=== PATIENT | female | born 1995 | race American Indian/Alaskan Native ===

== ENCOUNTER 2016-12-19 22:13 | Inpatient (IN) | payer MEDICAID ==
[2016-12-19] MEDS ORDERED: LACTATED RINGERS 1,000 ML ONE (23:04)
[2016-12-19] MEDS ORDERED: LACTATED RINGERS 500 ML IV ONE (23:06)
[2016-12-19] MEDS ORDERED: LACTATED RINGERS 1,000 ML IV ONE (23:08)
[2016-12-20 00:04] LABS: Bacteria,Urine 4+ /HPF (Negative); Bilirubin,Urine NEG (Negative); Blood,Urine SM (Negative); Ketones,Urine NEG (Negative); Leukocyte Esterase,Urine LG (Negative); Mucus,Urine FEW /HPF; Nitrite,Urine POS (Negative)
[2016-12-20 00:11] LABS: WBC,Urine > 182.0 /HPF (0.0-6.0)
--- NOTE | 2016-12-20 00:21 | History and Physical Report ---
History of Present Illness Date of examination: 12/20/16 Chief complaint: fever x 3 days History of present illness: Pt is a 21 year old -[place] female LEON 02[birth year] at 32w4d who presents complaining low back pain and fever x 3 days. She denies cough (though she does report runny nose and itchy eyes), nausea, vomiting, dysuria, hematuria , diarrhea, trauma, sick contacts, or recent travel outside the . The patient is in [place] while visiting her mother but she lives in [place], [place] and has care there with Dr Darya Miranda. She reports that her has been uncomplicated except for anemia. She has been evaluated by a as400 programmer Dr Wilhelm and was prescribed three weekly iron infusions, with the last on December 05, 2016. She reports good movement today, and denies vaginal bleeding or leakage of fluid. Of note, the patient does report episodes of shaking over the past few days that are uncontrollable and include her whole body. She experiences dyspnea when these episodes occur, which is typically at night. Past History Past Medical History: no pertinent history Past Surgical History: no surgical history Family/Genetic History: diabetes, heart disease Social history: no significant social history - Obstetrical History Expected Date of Delivery: 02/10/17 Actual Gestation: 32 Week(s) 4 Day(s) : 2 Para: 0 Hx # Term Pregnancies: 0 Number of Pregnancies: 0 Spontaneous Abortions: 1 Induced : 0 Medications and Allergies Allergies Allergy/AdvReac Type Severity Reaction Status Date / Time No Known Allergies Allergy Unverified 12/19/16 22:30 Review of Systems All systems: negative (per HPI) - Vital Signs Vital signs: Vital Signs Pulse Pulse Ox 125 H 96 12/19/16 22:17 12/19/16 22:17 Temp Pulse Resp BP Pulse Ox 102.4 F H 121 H 18 96/38 99 12/19/16 22:27 12/20/16 00:18 12/19/16 22:27 12/19/16 22:28 12/20/16 00:18 - Physical Exam Breasts: Positive: deferred Cardiovascular: Regular rate Lungs: Positive: Clear to auscultation Abdomen: Positive: soft (gravid, non-tender ). Negative: tenderness Uterus: Positive: enlarged (gravid ) Extremities: Positive: normal - Obstetrical FHR: category 2 Uterine Contraction Monitor Mode: External Uterine Contraction Pattern: Absent Uterine Tone Measurement Phase: Resting Results Abnormal lab results 12/19/16 Range/Units 23:20 Urine WBC (Auto) > 182.0 H (0.0-6.0) /HPF All other labs normal. Assessment and Plan A: IUP at 32w4d Febrile morbidity Anemia P: Admit to antepartum service. Blood cultures x 2 CBC, CMP CXR, Urine culture BPP MFM consult
[2016-12-20] MEDS ORDERED: BENADRYL PO PRN (00:31)
[2016-12-20] MEDS ORDERED: DEEP SEA NS PRN (00:31)
[2016-12-20] MEDS ORDERED: TYLENOL PO PRN (00:31)
[2016-12-20] MEDS ORDERED: ROBITUSSIN DM PO PRN (00:31)
[2016-12-20] MEDS ORDERED: COLACE PO PRN (00:31)
[2016-12-20] MEDS ORDERED: ALUM-MAG HYDROX-SIMETH 200-200-20MG/5ML PO PRN (00:31)
--- NOTE | 2016-12-20 00:32 | XRay Report ---
FINAL REPORT PROCEDURE: XR CHEST 1V AP TECHNIQUE: Chest radiograph anteroposterior view. CPT 86704 HISTORY: fever, difficulty breathing COMPARISON: No prior studies are available for comparison. FINDINGS: Heart: Normal. Mediastinum/Vessels: Normal. Lungs/Pleural space: Normal. Bony thorax: No acute osseous abnormality. Life support devices: None. IMPRESSION: No acute cardiopulmonary abnormality.
[2016-12-20 00:44] LABS: Basophils % (Auto) 0.2 % (0.0-1.8); Eosinophils % (Auto) 0.2 % (0.0-4.3); Hematocrit 28.2 % (30.3-42.9); Hemoglobin 9.3 gm/dl (10.1-14.3); Mean Corpuscular HGB Conc 33 % (30-34); Mean Corpuscular Hemoglobin 29 pg (28-32); Mean Corpuscular Volume 88 fl (79-97); Platelet Count 168 K/mm3 (140-440); Red Cell Distribution Width 14.8 % (13.2-15.2); White Blood Count 7.6 K/mm3 (4.5-11.0)
--- NOTE | 2016-12-20 00:50 | Event Note ---
Date: 12/20/16 Urinalysis results reviewed. Pt with pyelonephritis and possibly urosepsis. Continue to closely monitor maternal and status. Continuous pulse oximetry. Cancel chest X-ray as low suspicion as etiology of fever at this time. Begin Rocephin 1g q 24 hrs.
[2016-12-20] MEDS ORDERED: ROCEPHIN/NS 1 GM/50 ML 1 GM/50 ML BAG IV SCH ×2 (00:52→11:30)
[2016-12-20] MEDS: LACTATED RINGERS 1,000 ML IV SCH ×3 (01:50→14:08)
[2016-12-20 02:08] LABS: Anion Gap TNR mmol/L; BUN/Creatinine Ratio TNR; Blood Urea Nitrogen TNR mg/dL (7-17); Carbon Dioxide TNR mmol/L (22-30); Chloride TNR mmol/L (98-107); Potassium TNR mmol/L (3.6-5.0); Sodium TNR mmol/L (137-145)
[2016-12-20 02:09] LABS: Alanine Aminotransferase TNR units/L (7-56); Albumin TNR g/dL (3.9-5); Albumin/Globulin Ratio TNR %; Alkaline Phosphatase TNR units/L (35-129); Bilirubin,Total TNR mg/dL (0.1-1.2); Calcium TNR mg/dL (8.4-10.2); Glucose TNR mg/dL (65-100); Total Protein TNR g/dL (6.3-8.2)
[2016-12-20] MEDS: STADOL IV PRN (02:22)
[2016-12-20 04:15] LABS: Alanine Aminotransferase 8 units/L (7-56); Albumin 3.1 g/dL (3.9-5); Albumin/Globulin Ratio 1.2 %; Alkaline Phosphatase 86 units/L (35-129); Anion Gap 19 mmol/L; BUN/Creatinine Ratio 13.33; Blood Urea Nitrogen 4 mg/dL (7-17); Calcium 8.5 mg/dL (8.4-10.2); Carbon Dioxide 21 mmol/L (22-30); Chloride 102.6 mmol/L (98-107); Glucose 99 mg/dL (65-100); Potassium 3.4 mmol/L (3.6-5.0); Sodium 139 mmol/L (137-145); Total Protein 5.7 g/dL (6.3-8.2)
--- NOTE | 2016-12-20 08:04 | Ultrasound Report ---
ULTRASOUND BIOPHYSICAL PROFILE: History: well being Technique: Transabdominal ultrasound with Doppler interrogation. 2 - breathing movements 2 - movements 2 - posture and tone 2 - Qualitative amniotic fluid volume 8 - TOTAL SCORE OF POSSIBLE 8 Heart Rate (bpm) 150
[2016-12-20] MEDS ORDERED: PRENATAL VITAMIN PO SCH (10:00)
[2016-12-20] MEDS: KCL 10MEQ/100ML 10 MEQ/100 ML BAG IV SCH ×2 (12:07→14:06)
--- NOTE | 2016-12-20 13:33 | Progress Note ---
Assessment and Plan A: IUP at 32w4d Febrile morbidity Anemia low potassium P: Admit to antepartum service. afebrile since 12/20 1 am Rocephin for UTI /Pyelo K+ ( addition) repeat cmp in am MFM consult Subjective - Subjective Date of service: 12/20/16 Principal diagnosis: Pyelo, IUP 35 weeks Patient reports: appetite normal, voiding normally, pain well controlled, flatus , ambulating normally Objective - Vital Signs Latest vital signs: Vital Signs Temp Pulse Pulse Resp BP BP Pulse Ox 12/20/16 12:07 85 98 12/20/16 12:05 97.9 F 79 18 109/62 12/20/16 12:02 88 98 12/20/16 11:59 82 109/62 12/20/16 11:57 89 97 12/20/16 11:52 87 98 12/20/16 11:47 82 98 12/20/16 11:42 87 98 12/20/16 11:37 85 99 12/20/16 11:32 91 H 98 12/20/16 11:27 88 98 12/20/16 11:22 82 98 12/20/16 11:17 91 H 100 12/20/16 11:12 92 H 100 12/20/16 11:07 99 H 99 12/20/16 11:02 87 100 12/20/16 10:57 80 98 12/20/16 10:52 83 97 12/20/16 10:47 78 98 12/20/16 10:42 86 97 12/20/16 10:37 85 97 12/20/16 10:32 89 98 12/20/16 10:27 98 H 96 12/20/16 10:22 99 H 97 12/20/16 10:17 97 H 97 12/20/16 10:12 89 97 12/20/16 10:07 86 97 12/20/16 10:02 92 H 98 12/20/16 09:57 88 97 12/20/16 09:52 86 97 12/20/16 09:47 88 97 12/20/16 09:42 94 H 97 12/20/16 09:37 100 H 97 12/20/16 09:32 96 H 98 12/20/16 09:31 96 H 90 12/20/16 09:19 93 H 95 12/20/16 09:14 93 H 96 12/20/16 09:11 88 94 12/20/16 09:09 89 94 12/20/16 09:04 90 92 12/20/16 08:59 88 97 12/20/16 08:54 86 96 12/20/16 08:49 83 97 12/20/16 08:44 85 96 12/20/16 08:39 85 96 12/20/16 08:34 87 96 12/20/16 08:29 89 95 12/20/16 08:24 89 97 12/20/16 08:19 88 97 12/20/16 08:14 89 97 12/20/16 08:09 100 H 97 12/20/16 08:04 93 H 96 12/20/16 08:00 85 89/53 12/20/16 07:59 83 88/51 98 12/20/16 07:54 91 H 97 12/20/16 07:49 98 H 95 12/20/16 07:44 91 H 97 12/20/16 07:39 93 H 97 12/20/16 07:34 98.2 F 85 85 20 101/57 97 12/20/16 07:29 82 99 12/20/16 07:24 75 99 12/20/16 07:19 77 99 12/20/16 07:14 84 99 12/20/16 07:09 94 H 96 12/20/16 07:04 94 H 96 12/20/16 06:59 95 H 96 12/20/16 06:54 97 H 96 12/20/16 06:49 95 H 96 12/20/16 06:44 100 H 96 12/20/16 06:39 97 H 97 12/20/16 06:37 103 H 94 12/20/16 06:35 98.7 F 99 H 20 101/57 05 06:34 100 H 95 12/20/16 06:29 97 H 101/57 96 12/20/16 06:28 66 75 L 12/20/16 06:09 110 H 97 12/20/16 06:04 97 H 98 12/20/16 05:59 96 H 98 12/20/16 05:54 98 H 98 12/20/16 05:49 99 H 98 12/20/16 05:44 101 H 99 12/20/16 05:39 97 H 99 12/20/16 05:34 96 H 98 12/20/16 05:29 107 H 98 12/20/16 05:24 102 H 99 12/20/16 05:19 105 H 99 12/20/16 05:14 109 H 99 12/20/16 05:11 96 H 76 L 12/20/16 05:09 115 H 98 12/20/16 05:04 106 H 98 12/20/16 04:59 111 H 98 12/20/16 04:54 114 H 99 12/20/16 04:49 109 H 99 12/20/16 04:44 111 H 100 12/20/16 04:42 115 H 0 L 12/20/16 04:39 112 H 98 12/20/16 04:34 112 H 98 12/20/16 04:33 110 H 101/55 12/20/16 04:29 119 H 98 12/20/16 04:24 118 H 98 12/20/16 04:20 100.4 F H 111 H 20 101/55 12/20/16 04:07 126 H 98 12/20/16 04:02 123 H 99 12/20/16 03:58 99.0 F 122 H 20 100/50 98 12/20/16 03:57 118 H 99 12/20/16 03:52 123 H 98 12/20/16 03:50 121 H 100/50 12/20/16 03:47 129 H 99 12/20/16 03:42 122 H 98 12/20/16 03:37 119 H 98 12/20/16 03:32 122 H 98 12/20/16 03:27 123 H 99 12/20/16 03:22 124 H 97 12/20/16 03:17 127 H 98 12/20/16 03:12 131 H 98 12/20/16 02:58 130 H 99 12/20/16 02:53 119 H 100 12/20/16 02:48 120 H 100 12/20/16 02:43 120 H 100 12/20/16 02:38 121 H 100 12/20/16 02:33 121 H 100 12/20/16 02:28 121 H 100 12/20/16 02:23 139 H 95 12/20/16 02:20 139 H 94 12/20/16 02:18 134 H 97 12/20/16 02:13 127 H 100 12/20/16 02:08 138 H 99 12/20/16 02:03 139 H 97 12/20/16 02:00 141 H 93 12/20/16 01:58 134 H 100 12/20/16 01:53 141 H 99 12/20/16 01:48 148 H 100 12/20/16 01:43 140 H 96 12/20/16 01:40 140 H 90 12/20/16 01:38 143 H 100 12/20/16 01:33 137 H 98 12/20/16 01:30 101.2 F H 126 H 19 96/38 98 12/20/16 01:28 126 H 98 12/20/16 01:23 142 H 99 12/20/16 01:18 64 86 12/20/16 00:23 123 H 97 12/20/16 00:22 125 H 99 12/20/16 00:21 121 H 99 12/20/16 00:20 123 H 99 12/20/16 00:19 121 H 99 12/20/16 00:18 121 H 99 12/20/16 00:15 121 H 99 12/20/16 00:10 125 H 96 12/20/16 00:09 121 H 97 12/20/16 00:05 125 H 99 12/20/16 00:03 123 H 99 12/20/16 00:00 127 H 98 12/19/16 23:05 125 H 99 12/19/16 23:03 127 H 99 12/19/16 23:02 127 H 97 12/19/16 22:46 147 H 96 12/19/16 22:45 125 H 96 12/19/16 22:43 131 H 97 12/19/16 22:40 127 H 95 12/19/16 22:38 129 H 96 12/19/16 22:35 127 H 96 12/19/16 22:33 125 H 96 12/19/16 22:30 127 H 97 12/19/16 22:28 123 H 96/38 96 12/19/16 22:27 102.4 F H 129 H 129 H 18 96/38 97 12/19/16 22:25 127 H 95 12/19/16 22:23 127 H 96 12/19/16 22:20 131 H 97 12/19/16 22:17 125 H 96 Intake and Output 12/19/16 12/20/16 12/20/16 22:59 06:59 14:59 Intake Total 1000 Balance 1000 Intake: IV 1000 Lactated Ringers 1,000 ml 1000 @ 125 mls/hr IV DIRECT YOLANDA Rx#:[id number] Other: # Voids Void 1 1 Weight 68.039 kg - Exam Breasts: Present: normal Cardiovascular: Present: Regular rate, Normal S1 Lungs: Present: Clear to auscultation, Normal air movement Abdomen: Present: normal appearance, soft, normal bowel sounds. Absent: distention, tenderness, mass Uterus: Present: normal, firm. Absent: bogginess, tenderness Extremities: Absent: normal - Labs Labs: Abnormal lab results 12/19/16 12/19/16 12/20/16 Range/Units 23:20 23:20 03:26 RBC 3.20 L (3.65-5.03) M/mm3 Hgb 9.3 L (10.1-14.3) gm/dl Hct 28.2 L (30.3-42.9) % Lymph % (Auto) 5.3 L (13.4-35.0) % [place] % (Auto) 9.6 H (0.0-7.3) % Lymph # 0.4 L (1.2-5.4) K/mm3 Seg Neutrophils % 84.7 H (40.0-70.0) % Potassium 3.4 L (3.6-5.0) mmol/L Carbon Dioxide 21 L (22-30) mmol/L BUN 4 L (7-17) mg/dL Creatinine 0.3 L (0.7-1.2) mg/dL Total Protein 5.7 L (6.3-8.2) g/dL Albumin 3.1 L (3.9-5) g/dL Urine WBC (Auto) > 182.0 H (0.0-6.0) /HPF
[2016-12-20 13:56] LABS: Bacteria,Urine 1+ /HPF (Negative); Bilirubin,Urine NEG (Negative); Blood,Urine SM (Negative); Ketones,Urine 20 mg/dL (Negative); Leukocyte Esterase,Urine LG (Negative); Mucus,Urine FEW /HPF; Nitrite,Urine NEG (Negative); Protein,Urine <15 mg/dL mg/dL (Negative); Urobilinogen,Urine < 2.0 mg/dL (<2.0)
[2016-12-21] MEDS ORDERED: ROCEPHIN/NS 1 GM/50 ML 1 GM/50 ML BAG IV SCH (01:00)
[2016-12-21] MEDS: LACTATED RINGERS 1,000 ML IV SCH ×2 (01:15→19:58)
[2016-12-21] MEDS: STADOL IV PRN ×2 (03:28→09:43)
[2016-12-21 07:27] LABS: Alanine Aminotransferase 8 units/L (7-56); Albumin 2.9 g/dL (3.9-5); Albumin/Globulin Ratio 0.9 %; Alkaline Phosphatase 93 units/L (35-129); Anion Gap 14 mmol/L; Blood Urea Nitrogen 3 mg/dL (7-17); Calcium 8.6 mg/dL (8.4-10.2); Carbon Dioxide 24 mmol/L (22-30); Chloride 105.5 mmol/L (98-107); Glucose 70 mg/dL (65-100); Potassium 3.4 mmol/L (3.6-5.0); Sodium 140 mmol/L (137-145); Total Protein 6.3 g/dL (6.3-8.2)
[2016-12-21] MEDS: KCL 10MEQ/100ML 10 MEQ/100 ML BAG IV SCH ×2 (10:06→11:50)
[2016-12-21 10:25] LABS: Basophils % (Auto) 0.2 % (0.0-1.8); Eosinophils % (Auto) 0.2 % (0.0-4.3); Hematocrit 26.6 % (30.3-42.9); Hemoglobin 8.7 gm/dl (10.1-14.3); Mean Corpuscular HGB Conc 33 % (30-34); Mean Corpuscular Hemoglobin 29 pg (28-32); Mean Corpuscular Volume 88 fl (79-97); Platelet Count 152 K/mm3 (140-440); Red Blood Count 3.04 M/mm3 (3.65-5.03); Red Cell Distribution Width 15.1 % (13.2-15.2); White Blood Count 7.3 K/mm3 (4.5-11.0)
--- NOTE | 2016-12-21 11:33 | Progress Note ---
Assessment and Plan A: IUP at 32+ Febrile morbidity Anemia low potassium r cva tenderness P: Admit to antepartum service. afebrile since 12/20 1 am Rocephin for UTI /Pyelo K+ ( addition) repeat cmp in am still low aded another K+ 20 meq MFM consult US of renal to assess for tones, hyrdro or any abnormalities of renal system consider po abx ( patient is afebrile for >24 hrs) tolerating po recommended continu throughout duration of Subjective - Subjective Date of service: 12/21/16 Principal diagnosis: Pyelo, IUP 35 weeks Patient reports: new complaints (right back pain), no loss of fluid, no vaginal bleeding, no contractions Objective - Vital Signs Vital Signs: Vital Signs - 12hr 12/21/16 12/21/16 12/21/16 01:20 01:21 03:28 Temperature 98.5 F Pulse Rate 92 H Pulse Rate [ 92 H Left From Monitor] Respiratory 20 16 Rate Blood Pressure 112/61 Blood Pressure 112/61 [Left Arm] Blood Pressure 0/0 [Right Arm] O2 Sat by Pulse Oximetry 12/21/16 12/21/16 12/21/16 07:04 07:09 07:14 Temperature Pulse Rate 100 H 97 H 96 H Pulse Rate [ Left From Monitor] Respiratory Rate Blood Pressure Blood Pressure [Left Arm] Blood Pressure [Right Arm] O2 Sat by Pulse 99 98 100 Oximetry 12/21/16 12/21/16 12/21/16 07:16 07:19 07:24 Temperature 98.5 F Pulse Rate 105 H 101 H Pulse Rate [ 99 H Left From Monitor] Respiratory 20 Rate Blood Pressure Blood Pressure 112/61 [Left Arm] Blood Pressure 0/0 [Right Arm] O2 Sat by Pulse 99 98 Oximetry 12/21/16 12/21/16 12/21/16 07:29 07:34 07:39 Temperature Pulse Rate 110 H 99 H 102 H Pulse Rate [ Left From Monitor] Respiratory Rate Blood Pressure Blood Pressure [Left Arm] Blood Pressure [Right Arm] O2 Sat by Pulse 98 99 100 Oximetry 12/21/16 12/21/16 12/21/16 07:44 07:49 08:01 Temperature Pulse Rate 101 H 101 H 79 Pulse Rate [ Left From Monitor] Respiratory Rate Blood Pressure Blood Pressure [Left Arm] Blood Pressure [Right Arm] O2 Sat by Pulse 99 99 52 L Oximetry 12/21/16 12/21/16 12/21/16 08:02 08:07 08:12 Temperature Pulse Rate 92 H 100 H 122 H Pulse Rate [ Left From Monitor] Respiratory Rate Blood Pressure Blood Pressure [Left Arm] Blood Pressure [Right Arm] O2 Sat by Pulse 71 L 99 99 Oximetry 12/21/16 12/21/16 12/21/16 08:17 08:22 08:23 Temperature Pulse Rate 106 H 103 H 109 H Pulse Rate [ Left From Monitor] Respiratory Rate Blood Pressure 132/60 Blood Pressure [Left Arm] Blood Pressure [Right Arm] O2 Sat by Pulse 97 99 Oximetry 12/21/16 12/21/16 12/21/16 08:24 08:25 09:43 Temperature 98.3 F Pulse Rate 103 H Pulse Rate [ 104 H Left From Monitor] Respiratory 18 18 Rate Blood Pressure 112/67 Blood Pressure 132/60 [Left Arm] Blood Pressure 112/67 [Right Arm] O2 Sat by Pulse 99 Oximetry - Exam Breasts: normal Cardiovascular: Regular rate, Normal S1 Lungs: Clear to auscultation, Normal air movement Abdomen: Present: normal appearance, soft, distention, normal bowel sounds. Absent: tenderness (r cva) Vulva: both: normal Uterus: Present: normal, firm FHR: category 1 Uterine Contraction Monitor Mode: External - Labs Labs: Abnormal Labs 12/19/16 12/19/16 12/20/16 23:20 23:20 03:26 RBC 3.20 L Hgb 9.3 L Hct 28.2 L Lymph % (Auto) 5.3 L [place] % (Auto) 9.6 H Lymph # 0.4 L [place] # Seg Neutrophils % 84.7 H Potassium 3.4 L Carbon Dioxide 21 L BUN 4 L Creatinine 0.3 L Total Protein 5.7 L Albumin 3.1 L Urine WBC (Auto) > 182.0 H 12/20/16 12/21/16 12/21/16 11:20 06:45 09:49 RBC 3.04 L Hgb 8.7 L Hct 26.6 L Lymph % (Auto) 9.9 L [place] % (Auto) 13.4 H Lymph # 0.7 L [place] # 1.0 H Seg Neutrophils % 76.3 H Potassium 3.4 L Carbon Dioxide BUN 3 L Creatinine 0.3 L Total Protein Albumin 2.9 L Urine WBC (Auto) 40.0 H Laboratory Results - last 24 hr 12/20/16 12/21/16 12/21/16 11:20 06:45 09:49 WBC 7.3 RBC 3.04 L Hgb 8.7 L Hct 26.6 L MCV 88 MCH 29 MCHC 33 RDW 15.1 Plt Count 152 Lymph % (Auto) 9.9 L [place] % (Auto) 13.4 H Eos % (Auto) 0.2 Baso % (Auto) 0.2 Lymph # 0.7 L [place] # 1.0 H Eos # 0.0 Baso # 0.0 Seg Neutrophils % 76.3 H Seg Neutrophils # 5.5 Sodium 140 Potassium 3.4 L Chloride 105.5 Carbon Dioxide 24 Anion Gap 14 BUN 3 L Creatinine 0.3 L Estimated GFR > 60 BUN/Creatinine Ratio 10.00 Glucose 70 Calcium 8.6 Total Bilirubin 0.20 AST 8 ALT 8 Alkaline Phosphatase 93 Total Protein 6.3 Albumin 2.9 L Albumin/Globulin Ratio 0.9 Urine Color Yellow Urine Turbidity Clear Urine pH 7.0 Ur Specific [place] 1.004 Urine Protein <15 mg/dl Urine Glucose (UA) Neg Urine Ketones 20 Urine Blood Sm Urine Nitrite Neg Urine Bilirubin Neg Urine Urobilinogen < 2.0 Ur Leukocyte Esterase Lg Urine WBC (Auto) 40.0 H Urine RBC (Auto) 3.0 U Epithel Cells (Auto) < 1.0 Urine Bacteria (Auto) 1+ Hyaline Casts 1 Urine Mucus Few - Results US- obstetric: report reviewed
--- NOTE | 2016-12-21 14:09 | Consultation ---
History of Present Illness Consult date: 12/21/16 Requesting physician: KEYSHA GURERERO History of present illness: fever x 3 days History of present illness: Pt is a 21 year old -[place] female LEON 02/10/17 at 32w4d who presents complaining low back pain and fever x 3 days. Presented with fever, chills, shakes, back pain rated "10/10" Now Pain "2/10" Urine cultures and Blood Cultures Pos for Gram Neg Rods Afeb since 12/19/16 at 4:20 am Currently on IV Rocephin History of recurrent bladder infections History of prior "bladder infections" during this preg and treated with PO antibiotics BPP 01/23 Renal US - report pending EFW - ?? not done She reports that her has been uncomplicated except for anemia. She has been evaluated by a proposal director Dr Wilhelm and was prescribed three weekly iron infusions, with the last on December 05, 2016. She reports good movement today, and denies vaginal bleeding or leakage of fluid. Past History Past Medical History: no pertinent history Past Surgical History: no surgical history Family/Genetic History: diabetes, heart disease Social history: no significant social history Studies High School on line No STD No C/D/D Past History Past Medical History: no pertinent history Past Surgical History: no surgical history Family/Genetic History: diabetes, heart disease - Obstetrical History : 2 Medications and Allergies Allergies Allergy/AdvReac Type Severity Reaction Status Date / Time No Known Allergies Allergy Unverified 12/19/16 22:30 Active Meds: Active Medications Acetaminophen (Tylenol) 650 mg PO Q4H PRN PRN Reason: Pain MILD(1-3)/Fever >100.5/GEORGE Al Hydrox/Mg Hydrox/Simethicone (Alum-Mag Hydrox-Simeth 989-909-63gm/5ml) 30 ml PO Q6H PRN PRN Reason: Indigestion Butorphanol Tartrate (Stadol) 1 mg IV Q2H PRN PRN Reason: Labor Pain Last Admin: 12/21/16 09:43 Dose: 1 mg Diphenhydramine HCl (Benadryl) 25 mg PO Q6H PRN PRN Reason: Itching Docusate Sodium (Colace) 100 mg PO Q12H PRN PRN Reason: Constipation Guaifenesin (Robitussin Dm) 10 ml PO Q6H PRN PRN Reason: Cough Lactated Ringer's (Lactated Ringers) 1,000 mls @ 125 mls/hr IV DIRECT [facility] Last Admin: 12/21/16 01:15 Dose: 125 mls/hr Ceftriaxone Sodium (Rocephin/Ns 1 Gm/50 Ml) 1 gm in 50 mls @ 100 mls/hr IV Q24H YOLANDA PRN Reason: Protocol Last Admin: 12/21/16 09:04 Dose: 100 mls/hr Multivitamins/Iron/Calcium ( Vitamin) 1 each PO QDAY [facility] Last Admin: 12/21/16 10:03 Dose: 1 each Sodium Chloride ([place]) 2 spray NS Q4H PRN PRN Reason: Congestion - Vital Signs Vital signs: Vital Signs Pulse Pulse Ox 125 H 96 12/19/16 22:17 12/19/16 22:17 Temp Pulse Resp BP Pulse Ox 97.9 F 56 L 18 119/75 77 L 12/21/16 13:06 12/21/16 13:07 12/21/16 13:06 12/21/16 13:06 12/21/16 13:07 Results Result Diagrams: 12/21/16 09:49 12/21/16 06:45 Abnormal lab results 12/21/16 12/21/16 Range/Units 06:45 09:49 RBC 3.04 L (3.65-5.03) M/mm3 Hgb 8.7 L (10.1-14.3) gm/dl Hct 26.6 L (30.3-42.9) % Lymph % (Auto) 9.9 L (13.4-35.0) % [place] % (Auto) 13.4 H (0.0-7.3) % Lymph # 0.7 L (1.2-5.4) K/mm3 [place] # 1.0 H (0.0-0.8) K/mm3 Seg Neutrophils % 76.3 H (40.0-70.0) % Potassium 3.4 L (3.6-5.0) mmol/L BUN 3 L (7-17) mg/dL Creatinine 0.3 L (0.7-1.2) mg/dL Albumin 2.9 L (3.9-5) g/dL All other labs normal. Assessment and Plan 1. [place] IUP at 32 4/7 weeks 2. Pyelonephritis 3. Urosepsis (Pos Blood Cultures) 4. H/O Anemia Recommendations: 1. Continue IV antibiotics x 72 hours after afeb 2. Would convert to oral antibiotics X 14 days 3. After Oral Antibiotics would recommend Macrodantin 100 mg daily for duration of 4. Obtain US EFW if not done 5. Hydration 6. FeS04 325 mg BID 7. Would provide all reports and labs for patient when discharged to give to her OB in [place]
[2016-12-22] MEDS ORDERED: ROCEPHIN/NS 1 GM/50 ML 1 GM/50 ML BAG IV SCH (09:00)
--- NOTE | 2016-12-22 09:57 | Progress Note ---
Assessment and Plan A: IUP at 32+5 Febrile morbidity ( resolved Afebrile ( 12/19/16 at 420 am) Anemia ( iron tabs bid) low potassium ( mild) r cva tenderness P: will switch roephin to Macrobi sensitive--E.Coli cultured) s/p Rocephin for UTI /Pyelo check CMP s./p 20 meq K+ ) appreciated MFM consult awaiting results of US of renal to assess for tones, hyrdro or any abnormalities of renal system consider d/c home today or tomorrow Subjective - Subjective Date of service: 12/22/16 Principal diagnosis: Pyelo, IUP 35 weeks Patient reports: new complaints (right back pain), movement normal, no loss of fluid, no vaginal bleeding, no contractions Objective - Vital Signs Vital Signs: Vital Signs - 12hr 12/21/16 12/21/16 12/22/16 23:30 23:35 03:06 Temperature 99.0 F 98.3 F Pulse Rate 108 H 99 H Pulse Rate [ 98 H Apical] Pulse Rate [ 108 H 99 H Left From Monitor] Respiratory 18 18 Rate Blood Pressure 119/66 126/57 Blood Pressure 119/66 126/57 [Left Arm] 12/22/16 07:25 Temperature 98.2 F Pulse Rate 87 Pulse Rate [ Apical] Pulse Rate [ 87 Left From Monitor] Respiratory 16 Rate Blood Pressure 122/75 Blood Pressure 122/75 [Left Arm] - Exam Breasts: normal Cardiovascular: Regular rate, Normal S1 Lungs: Clear to auscultation, Normal air movement Abdomen: Present: normal appearance, soft, normal bowel sounds. Absent: distention, tenderness Vulva: both: normal Uterus: Present: normal, firm FHR: category 1 - Labs Labs: Abnormal Labs 12/19/16 12/19/16 12/20/16 23:20 23:20 03:26 RBC 3.20 L Hgb 9.3 L Hct 28.2 L Lymph % (Auto) 5.3 L [place] % (Auto) 9.6 H Lymph # 0.4 L [place] # Seg Neutrophils % 84.7 H Potassium 3.4 L Carbon Dioxide 21 L BUN 4 L Creatinine 0.3 L Total Protein 5.7 L Albumin 3.1 L Urine WBC (Auto) > 182.0 H 12/20/16 12/21/16 12/21/16 11:20 06:45 09:49 RBC 3.04 L Hgb 8.7 L Hct 26.6 L Lymph % (Auto) 9.9 L [place] % (Auto) 13.4 H Lymph # 0.7 L [place] # 1.0 H Seg Neutrophils % 76.3 H Potassium 3.4 L Carbon Dioxide BUN 3 L Creatinine 0.3 L Total Protein Albumin 2.9 L Urine WBC (Auto) 40.0 H Laboratory Results - last 24 hr 12/21/16 09:49 WBC 7.3 RBC 3.04 L Hgb 8.7 L Hct 26.6 L MCV 88 MCH 29 MCHC 33 RDW 15.1 Plt Count 152 Lymph % (Auto) 9.9 L [place] % (Auto) 13.4 H Eos % (Auto) 0.2 Baso % (Auto) 0.2 Lymph # 0.7 L [place] # 1.0 H Eos # 0.0 Baso # 0.0 Seg Neutrophils % 76.3 H Seg Neutrophils # 5.5
--- NOTE | 2016-12-22 12:59 | Ultrasound Report ---
Renal ultrasound. History: Flank pain, UTI, 32 weeks . Findings: There is mild right hydronephrosis. The right kidney is normal in size measuring 12.3 cm in longitudinal axis. The left kidney is normal in size and configuration with no evidence hydronephrosis. No renal masses are seen. The cortex appears normal in thickness bilaterally. Impression: Mild right hydronephrosis.
[2016-12-22] MEDS ORDERED: MACROBID PO SCH (13:00)
[2016-12-22 14:29] LABS: Alanine Aminotransferase 7 units/L (7-56); Albumin 3.1 g/dL (3.9-5); Albumin/Globulin Ratio 0.9 %; Alkaline Phosphatase 102 units/L (35-129); Anion Gap 9 mmol/L; Bilirubin,Total < 0.20 mg/dL (0.1-1.2); Blood Urea Nitrogen 3 mg/dL (7-17); Carbon Dioxide 30 mmol/L (22-30); Chloride 100.7 mmol/L (98-107); Glucose 65 mg/dL (65-100); Potassium 3.6 mmol/L (3.6-5.0); Sodium 136 mmol/L (137-145); Total Protein 6.5 g/dL (6.3-8.2)
--- NOTE | 2016-12-22 15:26 | Ultrasound Report ---
Gestation: single Position: cephalic Amniotic Fluid: WNL ELLA = cm Placenta: fundal,left lateral Placental Grade: 1 Heart Rate: 132 BPM BPD: 8.2 cm = 32 w 6 d HC: 29 cm = 32 w 0 d AC: 27.6 cm = 31 w 5 d FL: 5.8 cm = 30 w 3 d HC/AC Ratio: 1.05 Cephalic Index: 86.7 Estimated Weight: 1764 grams Clinical age = 32 w 6 d EDC: 02/10/17 US Gest. Age = 31 w 5 d EDC: 02/18/17
--- NOTE | 2016-12-22 15:50 | Event Note ---
Date: 12/22/16 Patient had US today per MF and EFW 1769 11%. US shows mild hydronephrosis no stones. Patient currently s/p iv abx or 72 hrs and afebrile. will dicharge home on macrobid. chart copied for her to take to her ob gyn in [place]. she is currently improved and will be dischagee with instructions. All questions answered
--- NOTE | 2016-12-22 15:53 | Discharge Summary ---
Providers - Providers Date of Admission: 12/20/16 00:54 Date of discharge: 12/22/16 Attending physician: NEAL POWER 12/20/16 07:00 Consult to Physician [CONS] Routine Consulting Provider: CHADD JEAN Reason For Exam: IUP at 32 wks, unexplained febrile morbidity Place consult to:: elder douglas-Ruthy Notified:: yes Phone number called:: [phone] Was contact made?: Yes If yes, spoke with:: Ruthy Time called:: 07:35 Comment:: called and confirmed that consult was called-called 12/20/169 Primary care physician: PHOTO EQUIPMENT TECHNICIAN Hospitalization Reason for admission: other (fever urosepsis ) Discharge diagnosis: other (s/p pyelonephritis Ecoli s/p IV rocephin currently on macrobid ) Disposition: DC-30 STILL A PATIENT Plan - Discharge Medications Prescriptions: Ferrous Sulfate [Feosol 325 MG tab] 325 mg PO BID #60 tablet Nitrofurantoin Chase/M-Cryst [Macrobid CAP] 100 mg PO Q12HR #30 capsule - Provider Discharge Summary Activity: routine Diet: routine Instructions: routine Additional instructions: [] Smoking cessation referral if applicable(refer to patient education folder for contact #) [] Refer to [facility] Booklet Call your doctor immediately for: * Fever > 100.5 * Heavy vaginal bleeding ( >1 pad per hour) * Severe persistent headache * Shortness of breath * Reddened, hot, painful area to leg or breast * Drainage or odor from incision. * Keep incision clean and dry at all times and follow doctor's instructions regarding bathing/showering - Follow up plan Follow up: PRIMARY CARE, [Primary Care Provider] - 7 Days
[2016-12-22 16:36] VITALS: BP 117/78
== END 2016-12-22 17:00 | disposition home or self-care (01) | DRG 781 ==
LOC: TRG 22:13 → LD 12-20 00:54
PROVIDERS: ADMIT Obstetrics & Gynecology; ATTEND Obstetrics & Gynecology
DX: O99.013 Anemia complicating pregnancy, third trimester (principal); D64.9 Anemia, unspecified; O23.03 Infections of kidney in pregnancy, third trimester; O99.283 Endocrine, nutritional and metabolic diseases complicating pregnancy, third trimester; E83.39 Other disorders of phosphorus metabolism; N13.30 Unspecified hydronephrosis; O26.833 Pregnancy related renal disease, third trimester; Z3A.32 32 weeks gestation of pregnancy; Z83.3 Family history of diabetes mellitus; Z82.49 Family history of ischemic heart disease and other diseases of the circulatory system
CPT/HCPCS: 36415; 71010; 76770; 76816; 76819; 80053; 81001; 85025; 87040; 87076; 87086; 87186; J0595; J0696; J3480; J7120